=== PATIENT | male | born 1955 | race Caucasian/White ===

== ENCOUNTER → 2024-05-27 | Outpatient (CLI) | payer BC, SELFPAY ==
--- NOTE | 2024-05-27 16:00 | XR_ITS ---
Examination: MRI abdomen with intravenous contrast. MRI abdomen without intravenous contrast. Date and time of exam: May 28, 1999 2516 3 9 hours INDICATIONS: Outside CT examination 2 months ago demonstrated liver lesions Technique: Multiple axial, sagittal and coronal sections of the abdomen obtained. Transverse images, TR 6020, TE 107. T1 weighted transverse images, TR 582, TE 9.5. T2-weighted sagittal images, TR 4000, TE 105. T2-weighted sagittal images, TR 4000, TE 5. Coronal images, TR 4210, TE 107. Axial and coronal images are obtained post 19 cc intravenous injection, gadolinium. Findings: Precontrast images demonstrate liver lesions, with increased signal on the precontrast images, the largest in the medial right over the liver 26 mm Postcontrast images do not demonstrate abnormal enhancement of these lesions Liver is not enlarged No splenic defects No gallstones noted No extrahepatic biliary tract dilatation Negative for pancreatic mass or peripancreatic edema No ascites Aorta normal size No hydronephrosis IMPRESSION: Findings most consistent with benign hepatic cysts Recommend 3-6 month follow-up hepatic sonography
== END | disposition home or self-care (01) ==
LOC: SMRI 15:22
PROVIDERS: PCP Physician Assistant; Referring Provider Physician Assistant Medical; Visit Provider Physician Assistant Medical
DX: K76.89 Other specified diseases of liver (principal)
CPT/HCPCS: 74183; A4699; A9579